=== PATIENT | female | born 1995 | race Caucasian/White ===

== ENCOUNTER 2016-12-10 15:35 | Observation (INO) | payer SELFPAY ==
[2016-12-10 16:52] LABS: Urine Bilirubin Negative (Negative); Urine Blood Negative /uL (Negative); Urine Color Yellow (Yellow); Urine Glucose Normal (Normal); Urine Ketone Negative (Negative); Urine Nitrite Negative (Negative); Urine RBC 4 /hpf (0 - 4); Urine Squamous Epithelial Cell MOD /hpf (<5); Urine pH 6.5 (5.0-8.0)
[2016-12-10 17:11] LABS: Basophils # (auto) 0 uL; Basophils % (auto) 0.4 % (0.0-2.0); CONDITION Y; Eosinophils # (auto) 0 uL; Eosinophils % (auto) 0.6 % (0.0-7.0); Hematocrit 37.9 % (36.0-46.0); Hemoglobin 12.5 g/dL (12.2-16.2); Lymphocytes # (auto) 1.9 uL; Lymphocytes % (auto) 28.2 % (10.0-50.0); Mean Corpuscular Hemoglobin 27.4 pg (28.0-32.0); Mean Corpuscular Volume 82.9 fL (80.0-100.0); Mean Platelet Volume 11.3 fL (7.4-10.4); Monocytes # (auto) 0.4 uL; Monocytes % (auto) 5.7 % (0.0-12.0); Neutrophils # (auto) 4.4 uL; Neutrophils % (auto) 65.1 % (37.0-80.0); Platelet Count (auto) 175 10^3/uL (140-450); Red Cell Distribution Width 15.5 % (11.6-16.0); White Blood Cell 6.7 10^3/uL (4.4-10.8)
[2016-12-10 17:22] LABS: INR 0.94 (0.9-1.15); Partial Thromboplastin Time 28.5 sec (22.64-33.71); Prothrombin Time 10.2 sec (9.37-12.3)
[2016-12-10 17:32] LABS: Albumin 2.8 g/dL (3.4-5.0); BUN/Creatinine Ratio 14.1; Calcium 8.4 mg/dL (8.5-10.1)
[2016-12-10 17:35] LABS: Bilirubin, Total 0.4 mg/dL (0.2-1.0); Total Protein 6.9 g/dL (6.4-8.2)
[2016-12-10 17:37] LABS: Uric Acid 4.7 mg/dL (2.6-6.0)
== END 2016-12-10 17:45 | disposition home or self-care (01) | DRG 781 ==
LOC: LDRP 15:35
PROVIDERS: ADMIT Obstetrics & Gynecology; ATTEND Obstetrics & Gynecology
DX: O26.893 Other specified pregnancy related conditions, third trimester (principal); O09.33 Supervision of pregnancy with insufficient antenatal care, third trimester; Z3A.37 37 weeks gestation of pregnancy
CPT/HCPCS: 36415; 59025; 76805; 76818; 80053; 80307; 81001; 81002; 83036; 84550; 85025; 85610; 85730; 86592; 86703; 86762; 86850; 86900; 86901; 87340; G0378

== ENCOUNTER 2016-12-12 10:35 | Observation (INO) | payer MEDICAID | END 2016-12-12 12:25 | disposition home or self-care (01) | DRG 566 | LOC: LDRP 10:35 | PROVIDERS: ADMIT Specialist; ATTEND Specialist | DX: O48.0 Post-term pregnancy (principal); Z3A.40 40 weeks gestation of pregnancy | CPT/HCPCS: 59025; 76818; 81002; G0378 ==

== ENCOUNTER 2016-12-16 04:10 | Inpatient (IN) | payer MEDICAID ==
[~2016-12-16] VITALS: Ht 167.6 cm; Wt 68.0 kg
[2016-12-16] MEDS ORDERED: LACT. RINGERS/OXYTOCIN 20UNITS 1,000 ML IV SCH (04:28)
[2016-12-16] MEDS ORDERED: DERMOPLAST 60ML BOTTLE TOP PRN (04:30)
[2016-12-16] MEDS ORDERED: NALBUPHINE HCL 10 MG/1ml INJECTION IV PRN (04:30)
[2016-12-16] MEDS ORDERED: WITCH HAZEL-GLYCERIN PAD TOP PRN (04:30)
[2016-12-16] MEDS ORDERED: PENICILLIN G POT 5MIL/D5 50ML 50 ML IV ONE ×3 (04:30→05:00)
[2016-12-16] MEDS ORDERED: LIDOCAINE 2%HCL (LOCAL ANESTH.) INJ 20ML MDV IJ PRN (04:30)
[2016-12-16] MEDS ORDERED: PROMETHAZINE HCL 25 MG/ML 1ML IV PRN (04:30)
[2016-12-16] MEDS ORDERED: METHYLERGONOVINE MALEATE 0.2 MG/ML AMP IM PRN (04:30)
[2016-12-16] MEDS ORDERED: PHISODERM TOP SOLN 240ML BTL TOP PRN (04:30)
[2016-12-16] MEDS: LACTATED RINGER'S 1,000 ML IV SCH ×3 (04:32→22:18)
[2016-12-16 05:23] LABS: Urine Bilirubin Negative (Negative); Urine Color Yellow (Yellow); Urine Glucose Normal (Normal); Urine Ketone Negative (Negative); Urine Nitrite Negative (Negative); Urine RBC 1 /hpf (0 - 4); Urine Squamous Epithelial Cell FEW /hpf (<5); Urine pH 6.5 (5.0-8.0)
[2016-12-16 05:31] LABS: Urine Blood 1+ /uL (Negative)
[2016-12-16 05:35] LABS: Basophils # (auto) 0 uL; Basophils % (auto) 0.4 % (0.0-2.0); CONDITION Y; Eosinophils # (auto) 0.1 uL; Eosinophils % (auto) 0.8 % (0.0-7.0); Hematocrit 36.2 % (36.0-46.0); Lymphocytes # (auto) 2.3 uL; Mean Corpuscular Hemoglobin 27.4 pg (28.0-32.0); Mean Corpuscular Hgb Conc. 33.2 g/dL (32.0-36.0); Mean Corpuscular Volume 82.6 fL (80.0-100.0); Mean Platelet Volume 11.6 fL (7.4-10.4); Monocytes # (auto) 0.5 uL; Monocytes % (auto) 7.1 % (0.0-12.0); Neutrophils # (auto) 4.6 uL; Neutrophils % (auto) 60.7 % (37.0-80.0); Platelet Count (auto) 132 10^3/uL (140-450); SUSPECT SEE PRINTOUT; White Blood Cell 7.5 10^3/uL (4.4-10.8)
[2016-12-16 05:38] LABS: INR 0.92 (0.9-1.15); Partial Thromboplastin Time 27.8 sec (22.64-33.71)
[2016-12-16 05:41] LABS: Albumin 2.8 g/dL (3.4-5.0); Calcium 7.9 mg/dL (8.5-10.1); Potassium 3.5 mmol/L (3.5-5.1)
[2016-12-16 05:45] LABS: BUN/Creatinine Ratio 13.3
[2016-12-16 05:53] LABS: Bilirubin, Total 0.2 mg/dL (0.2-1.0); Total Protein 6.8 g/dL (6.4-8.2)
[2016-12-16] MEDS ORDERED: ePHEDrine SULFATE 50 MG/ML AMP IV ONE (07:00)
[2016-12-16] MEDS ORDERED: fentaNYL W ROPIVACAINE 150 ML EPI SCH ×2 (07:00→08:45)
[2016-12-16] MEDS ORDERED: fentaNYL CITRATE 100 MCG/2 ML VL IV ONE (07:00)
[2016-12-16] MEDS ORDERED: LIDOCAINE HCL 2 %PF INJ 10ML AMP IJ ONE ×2 (07:00→13:50)
[2016-12-16] MEDS ORDERED: NALOXONE HCL 0.4 MG/ML VIAL IV ONE (07:00)
[2016-12-16] MEDS ORDERED: PENICILLIN G POTASSIUM 2,500,000 UNITS in D5W 5% 50 ML IV SCH ×2 (08:30→09:00)
[2016-12-16] MEDS ORDERED: CARBOPROST TROMETHAMINE 250 MCG/1ML VIAL IM ONE (13:34)
[2016-12-16] MEDS ORDERED: SODIUM BICARBONATE INFANT SYR 10 ML SYRG IV ONE (13:51)
[2016-12-16] MEDS ORDERED: ePHEDrine SULFATE 50 MG/ML AMP ONE (14:06)
[2016-12-16] MEDS ORDERED: ceFAZolin 1GM VL ONE (14:08)
[2016-12-16] MEDS ORDERED: METOCLOPRAMIDE HCL 5MG/ml INJ 2ml VIAL ONE (14:11)
[2016-12-16] MEDS ORDERED: DEXAMETHASONE SOD PHOS 10MG/1ML VIAL INJ ONE (14:11)
[2016-12-16] MEDS ORDERED: ONDANSETRON HCL 4 MG/2 ML VIAL ONE (14:11)
[2016-12-16] MEDS ORDERED: PHENYLEPHRINE HCL 10 MG/ML VL ONE (14:15)
[2016-12-16] MEDS ORDERED: GELATIN 1 SPONGE SIZE 100 TOP ONE (14:21)
[2016-12-16] MEDS ORDERED: MORPHINE SULF(PF) 0.5MG/ML 10ML VIAL ONE (14:28)
[2016-12-16] MEDS ORDERED: fentaNYL CITRATE 100 MCG/2 ML VL ONE ×2 (14:31→14:45)
[2016-12-16] MEDS: LACT. RINGERS/OXYTOCIN 20UNITS 1,000 ML IV SCH ×2 (14:50→21:30)
[2016-12-16] MEDS ORDERED: HYDROmorphone HCL 2 MG/ML VL IV PRN ×3 (15:00→15:30)
[2016-12-16] MEDS ORDERED: ONDANSETRON HCL 4 MG/2 ML VIAL IV PRN ×2 (15:00→15:30)
[2016-12-16] MEDS ORDERED: MORPHINE SULF INJ 2 MG/ML SYRINGE 1ML IV PRN (15:00)
[2016-12-16] MEDS ORDERED: KETOROLAC TROMETH 30 MG/ML 1ML VIAL IV PRN ×2 (15:00→15:30)
[2016-12-16] MEDS ORDERED: NALOXONE HCL 0.4 MG/ML VIAL IV PRN ×2 (15:15→15:30)
[2016-12-16] MEDS ORDERED: hydrALAZINE HCL 20 MG/ML VL IV PRN (15:15)
[2016-12-16] MEDS ORDERED: ONDANSETRON HCL 4 MG/2 ML VIAL IV ONE (15:15)
[2016-12-16] MEDS ORDERED: diphenhdrAMINE HCL 50 MG/1 ML VL IV PRN (15:30)
[2016-12-16 18:20] VITALS: BP 113/73
[2016-12-16 20:03] VITALS: BP 110/62
[2016-12-16 21:00] VITALS: BP 111/63
[2016-12-16 21:21] LABS: Basophils # (auto) 0 uL; Basophils % (auto) 0.1 % (0.0-2.0); CONDITION Y; Eosinophils # (auto) 0 uL; Hematocrit 32.1 % (36.0-46.0); Hemoglobin 10.6 g/dL (12.2-16.2); Lymphocytes # (auto) 0.9 uL; Lymphocytes % (auto) 5.7 % (10.0-50.0); Mean Corpuscular Hemoglobin 27.5 pg (28.0-32.0); Mean Corpuscular Hgb Conc. 33.1 g/dL (32.0-36.0); Mean Platelet Volume 11.1 fL (7.4-10.4); Monocytes # (auto) 0.5 uL; Monocytes % (auto) 2.9 % (0.0-12.0); Neutrophils # (auto) 14.6 uL; Neutrophils % (auto) 91.3 % (37.0-80.0); Platelet Count (auto) 132 10^3/uL (140-450); Red Cell Distribution Width 15.7 % (11.6-16.0)
[2016-12-16 22:00] VITALS: BP 111/75
[2016-12-16] MEDS: ceFAZolin 1GM/50ML D5W 50 ML IV SCH (22:17)
[2016-12-16 23:00] VITALS: BP 106/60
[2016-12-17] VITALS (11 sets, daily range): BP systolic 85–104; BP diastolic 48–63
[2016-12-17] MEDS: LACTATED RINGER'S 1,000 ML IV SCH ×3 (04:50→22:15)
[2016-12-17] MEDS: ceFAZolin 1GM/50ML D5W 50 ML IV SCH ×3 (06:06→22:07)
[2016-12-17 06:52] LABS: Basophils # (auto) 0 uL; Basophils % (auto) 0.2 % (0.0-2.0); CONDITION Y; Eosinophils # (auto) 0 uL; Eosinophils % (auto) 0.1 % (0.0-7.0); Hematocrit 25.9 % (36.0-46.0); Hemoglobin 8.8 g/dL (12.2-16.2); Lymphocytes # (auto) 1.9 uL; Lymphocytes % (auto) 14.6 % (10.0-50.0); Mean Corpuscular Hemoglobin 27.9 pg (28.0-32.0); Mean Corpuscular Hgb Conc. 33.9 g/dL (32.0-36.0); Mean Corpuscular Volume 82.3 fL (80.0-100.0); Mean Platelet Volume 11.2 fL (7.4-10.4); Monocytes # (auto) 0.8 uL; Monocytes % (auto) 5.9 % (0.0-12.0); Neutrophils # (auto) 10.4 uL; Neutrophils % (auto) 79.2 % (37.0-80.0); Platelet Count (auto) 104 10^3/uL (140-450); Red Cell Distribution Width 15.9 % (11.6-16.0); White Blood Cell 13.1 10^3/uL (4.4-10.8)
[2016-12-17] MEDS: FERROUS SULFATE 325 MG TAB PO SCH ×2 (08:30→22:09)
[2016-12-17] MEDS ORDERED: DOCUSATE CALCIUM 240 MG CAP PO ONE (15:15)
[2016-12-17] MEDS ORDERED: BISACODYL 10 MG RECT SUPP PR PRN (15:15)
[2016-12-17] MEDS ORDERED: DOCUSATE SOD 100 MG CAP PO ONE (15:15)
[2016-12-17] MEDS: SIMETHICONE 80 MG CHEWABLE TABLET PO SCH ×2 (17:46→22:07)
[2016-12-17] MEDS: DOCUSATE SOD 100 MG CAP PO SCH (22:07)
[2016-12-17] MEDS: HYDROcodone-ACET 10/325MG TAB PO PRN (22:07)
[2016-12-17] MEDS: LACT. RINGERS/OXYTOCIN 20UNITS 1,000 ML IV SCH (22:14)
[2016-12-18] VITALS (7 sets, daily range): BP systolic 92–107; BP diastolic 50–68
[2016-12-18 04:10] LABS: Basophils # (auto) 0 uL; Basophils % (auto) 0.4 % (0.0-2.0); CONDITION Y; DEFINITIVE SEE PRINTOUT; Eosinophils # (auto) 0.1 uL; Eosinophils % (auto) 0.9 % (0.0-7.0); Hematocrit 25.5 % (36.0-46.0); Hemoglobin 8.3 g/dL (12.2-16.2); Lymphocytes # (auto) 2.4 uL; Lymphocytes % (auto) 19.5 % (10.0-50.0); Mean Corpuscular Hemoglobin 27.3 pg (28.0-32.0); Mean Corpuscular Hgb Conc. 32.6 g/dL (32.0-36.0); Mean Corpuscular Volume 83.6 fL (80.0-100.0); Mean Platelet Volume 10.1 fL (7.4-10.4); Monocytes # (auto) 0.5 uL; Monocytes % (auto) 4.4 % (0.0-12.0); Neutrophils # (auto) 9.3 uL; Neutrophils % (auto) 74.8 % (37.0-80.0); Platelet Count (auto) 113 10^3/uL (140-450); White Blood Cell 12.5 10^3/uL (4.4-10.8)
[2016-12-18] MEDS: SIMETHICONE 80 MG CHEWABLE TABLET PO SCH ×4 (06:02→22:12)
[2016-12-18] MEDS: ceFAZolin 1GM/50ML D5W 50 ML IV SCH ×3 (06:03→21:43)
[2016-12-18] MEDS ORDERED: PREN-96 PO (06:49)
[2016-12-18] MEDS: FERROUS SULFATE 325 MG TAB PO SCH ×2 (08:29→18:00)
[2016-12-18] MEDS: DOCUSATE CALCIUM 240 MG CAP PO SCH (10:04)
[2016-12-18] MEDS: DOCUSATE SOD 100 MG CAP PO SCH ×2 (10:05→21:43)
[2016-12-18] MEDS: HYDROcodone-ACET 10/325MG TAB PO PRN ×2 (10:45→22:04)
[2016-12-18] MEDS: IBUPROFEN 800 MG TAB PO PRN ×2 (16:00→23:49)
[2016-12-18] MEDS ORDERED: WITCH HAZEL-GLYCERIN PAD TOP ONE (20:37)
[2016-12-18] MEDS ORDERED: DERMOPLAST 60ML BOTTLE TOP ONE (20:37)
[2016-12-18] MEDS ORDERED: TETANUS-DIPTH-ACEL PERTUSSIS 0.5ML SYRG IM ONE (22:00)
[2016-12-19 03:50] VITALS: BP 100/57
[2016-12-19] MEDS: HYDROcodone-ACET 10/325MG TAB PO PRN ×2 (03:50→10:47)
[2016-12-19] MEDS: SIMETHICONE 80 MG CHEWABLE TABLET PO SCH ×2 (05:53→11:37)
[2016-12-19] MEDS: ceFAZolin 1GM/50ML D5W 50 ML IV SCH (05:54)
[2016-12-19 07:30] VITALS: BP 101/64
[2016-12-19] MEDS: DOCUSATE SOD 100 MG CAP PO SCH (10:42)
[2016-12-19] MEDS: DOCUSATE CALCIUM 240 MG CAP PO SCH (10:42)
[2016-12-19] MEDS: FERROUS SULFATE 325 MG TAB PO SCH (10:42)
[2016-12-19 12:00] VITALS: BP 134/82
[2016-12-19 12:01] VITALS: BP 108/66
== END 2016-12-19 12:55 | disposition home or self-care (01) | DRG 540 ==
LOC: LDRP 04:10
PROVIDERS: ADMIT Obstetrics & Gynecology; ATTEND Obstetrics & Gynecology
PROC: 10D00Z1 Extraction of Products of Conception, Low, Open Approach (ICD-10-PCS; principal; 2016-12-16 14:01)
DX: O32.4XX0 Maternal care for high head at term, not applicable or unspecified (principal); O99.824 Streptococcus B carrier state complicating childbirth; Z37.0 Single live birth; Z3A.41 41 weeks gestation of pregnancy
CPT/HCPCS: 36415; 51702; 59025; 80053; 80307; 81001; 85025; 85610; 85730; 86850; 86900; 86901; 90715; 94760; 96361; 96365; 96366; 96372; 96375; J0690; J1100; J1885; J2405; J2540; J2590; J3010; J7060